=== PATIENT | female | born 2000 | race Caucasian/White ===

== ENCOUNTER 2022-06-12 09:40 | Emergency (ER) | payer BC, MEDICAID ==
[2022-06-12 09:48] VITALS: BP 136/69; PULSE 74
[2022-06-12] MEDS ORDERED: Dicyclomine 20 MG Tab PO ONE (10:21)
== END 2022-06-12 11:00 | disposition home or self-care (01) ==
LOC: LL.ED 09:40
DX: K64.8 Other hemorrhoids (principal); K92.1 Melena; R19.7 Diarrhea, unspecified
CPT/HCPCS: 82272; 99284; A9270-GY

== ENCOUNTER 2022-09-29 18:14 | Emergency (ER) | payer BC ==
[2022-09-29] MEDS ORDERED: Ketorolac 30 MG/ML SDV IM ONE (18:54)
[2022-09-29] MEDS ORDERED: traMADol 50 MG Tab PO ONE (18:54)
[2022-09-29 19:21] VITALS: BP 138/84; PULSE 88
== END 2022-09-29 19:20 | disposition home or self-care (01) ==
LOC: LL.ED 18:14
DX: H92.03 Otalgia, bilateral (principal); J06.9 Acute upper respiratory infection, unspecified
CPT/HCPCS: 96372; 99282; 99283; A9270-GY; J1885